=== PATIENT | female | born 1995 | race African-American/Black ===

== ENCOUNTER 2018-03-20 10:41 | Inpatient (IN) ==
[2018-03-20 11:50] LABS: Basophils % 0.2 % (0.0-0.8); Eosinophils % 0.4 % (0.00-10.9); Hematocrit 32.2 VOL% (35.7-47.0); Hemoglobin 10.2 GM/DL (12.0-16.0); Immature Granulocytes % 1.2 %; Immature Granulocytes Absolute 0.13 #; Lymphocytes # 1.7 10*3/uL (1.4-4.0); Lymphocytes % 14.9 % (21.3-54.2); Mean Corpuscular HGB Conc 31.7 GM/DL (32-36); Mean Corpuscular Hemoglobin 25 PG (27-34); Mean Corpuscular Volume 79.3 FL (87-102); Mean Platelet Volume 13.2 FL (9.6-12.0); Monocytes # 0.8 10*3/uL (0.11-0.8); Monocytes % 7.1 % (1.7-12.7); Neutrophils # 8.6 10*3/uL (1.4-7.4); Neutrophils % 76.2 % (38.7-73.9); Platelet Count 193 T/CUMM (130-400); Red Blood Count 4.06 MC/CUMM (3.8-5.5); Red Cell Distribution Width 16.9 % (9.3-17.3); White Blood Count 11.2 T/CUMM (4-12)
[2018-03-20 12:24] LABS: Albumin 2.4 G/DL (3.4-5.0); Bilirubin,Total 0.5 MG/DL (0.2-1.0); Calcium 8.9 MG/DL (8.5-10.1); Osmolality,Calculated 272.5 MOS/KG (273-304); Potassium 3.7 MMOL/L (3.5-5.1); Total Protein 7.1 G/DL (6.4-8.3); Uric Acid 3.1 MG/DL (2.6-6.0)
[2018-03-20 12:37] LABS: Apearance,Urine CLOUDY (Clear); Bacteria,Urine Occasional /HPF (Few); Bilirubin,Urine Negative (Negative); Blood, Urine Large mg/dL (Negative); Glucose,Urine (UA) Negative (Negative); Ketones,Urine Negative (Negative); Nitrite,Urine Negative (Negative); Protein,Urine Negative; RBC,Urine 9 /HPF (0-4); Squamous Epithelial Cell,Urine Few /HPF (0-10); Urine Color Yellow (Yellow); Urine Specific Gravity 1.008 (1.001-1.035); Urine Urobilinogen < 2.0 EU/DL (0.2-1.0); WBC,Urine 111 /HPF (0-6)
[2018-03-20] MEDS ORDERED: ONDANSETRON 4 MG/2 ML VIAL IV PRN ×3 (12:43→21:25)
[2018-03-20] MEDS ORDERED: OXYTOCIN/LR 20 UNIT/1,000 ML BAG IV SCH (13:00)
[2018-03-20] MEDS ORDERED: PROMETHAZINE 25 MG/1 ML VIAL IM ONE (13:04)
[2018-03-20] MEDS ORDERED: diphenhydrAMINE 50 MG/1 ML VIAL IV PRN ×3 (13:04→20:49)
[2018-03-20] MEDS ORDERED: ONDANSETRON 4 MG/2 ML VIAL IV ONE (13:04)
[2018-03-20] MEDS ORDERED: ePHEDrine 50 MG/ML AMP IV PRN (13:04)
[2018-03-20] MEDS ORDERED: FAMOTIDINE 20 MG/2 ML VIAL IV ONE (13:04)
[2018-03-20] MEDS ORDERED: CITRIC ACID/SODIUM CITRATE 30 ML UDCUP PO ONE (13:04)
[2018-03-20] MEDS ORDERED: hydrOXYzine HCL 25 MG/1 ML VIAL IM PRN (13:04)
[2018-03-20] MEDS ORDERED: LACTATED RINGERS 250 ML IV PRN (13:04)
[2018-03-20 13:19] LABS: INR 0.9; PT Patient Result 9.8 SECS; Partial Thromboplastin Time 30.3 SECS (0-40)
[2018-03-20] MEDS ORDERED: fentaNYL 2 MCG/ROPIV 0.2% EPID 150 ML EPIDURAL SCH (13:30)
[2018-03-20] MEDS: LACTATED RINGERS 1,000 ML IV SCH ×2 (14:02→14:55)
[2018-03-20] MEDS ORDERED: MAGNESIUM SULF RIDER 4 GM in PREMIX 1 EACH IV ONE (18:34)
[2018-03-20] MEDS: MAGNESIUM SULF DRIP 40 GM/1,000 ML ML IV SCH (19:20)
[2018-03-20] MEDS ORDERED: ceFAZolin 2,000 MG in PREMIX 1 EACH IV ONE (20:24)
[2018-03-20] MEDS ORDERED: HYDROmorphone 2 MG/1 ML VIAL IV PRN (20:49)
[2018-03-20] MEDS ORDERED: SODIUM CHLORIDE 0.9% 1,000 ML IV SCH (21:00)
[2018-03-20] MEDS ORDERED: LACTATED RINGERS 1,000 ML IV SCH ×2 (21:00→21:30)
[2018-03-20] MEDS ORDERED: SIMETHICONE CHEW 80 MG TABLET PO PRN (21:25)
[2018-03-20] MEDS ORDERED: MAGNESIUM HYDROXIDE SUSP 30 ML UDCUP PO PRN (21:25)
[2018-03-20] MEDS ORDERED: IBUPROFEN 800 MG TABLET PO PRN (21:25)
[2018-03-20] MEDS ORDERED: RHO(D) IMMUNE GLOBULIN 300 MCG SYRINGE IM ONE (21:25)
[2018-03-20] MEDS ORDERED: ACETAMINOPHEN 325 MG TABLET PO PRN (21:25)
[2018-03-20] MEDS ORDERED: OXYTOCIN/LR 20 UNIT/1,000 ML BAG IV ONE (21:25)
[2018-03-20] MEDS ORDERED: MORPHINE 10 MG/10 ML VIAL ONE (21:41)
[2018-03-20] MEDS ORDERED: fentaNYL 100 MCG/2 ML VIAL ONE (21:41)
[2018-03-20] MEDS ORDERED: LIDOCAINE MPF 2% /EPI 20 ML VIAL ONE (21:46)
[2018-03-20] MEDS ORDERED: LACTATED RINGERS 1,000 ML IV ONE (21:46)
[2018-03-20] MEDS ORDERED: SODIUM BICARBONATE 2.4 MEQ/5 ML VIAL ONE (21:46)
[2018-03-20] MEDS ORDERED: ONDANSETRON 4 MG/2 ML VIAL ONE (21:46)
[2018-03-20] MEDS ORDERED: PHENYLEPHRINE 1 MG/10 ML SYRINGE IV ONE (21:46)
[2018-03-21] MEDS: LACTATED RINGERS 1,000 ML IV SCH (06:29)
[2018-03-21] MEDS: DOCUSATE SODIUM 100 MG CAPSULE PO SCH ×2 (09:52→21:44)
[2018-03-21] MEDS: MULTIVITAMIN (PRENATAL) TABLET PO SCH (09:52)
[2018-03-21] MEDS: MAGNESIUM SULF DRIP 40 GM/1,000 ML ML IV SCH (12:01)
[2018-03-21] MEDS ORDERED: ceFAZolin 1,000 MG in SYRINGE 1 EACH IV ONE (15:30)
[2018-03-21] MEDS ORDERED: FAMOTIDINE 20 MG/2 ML VIAL IV PRN (16:39)
[2018-03-21] MEDS: LABETALOL 100 MG TABLET PO SCH ×2 (17:18→21:32)
[2018-03-22 06:50] LABS: Basophils % 0.1 % (0.0-0.8); Eosinophils % 0.1 % (0.00-10.9); Hematocrit 32.3 VOL% (35.7-47.0); Immature Granulocytes % 2.5 %; Immature Granulocytes Absolute 0.62 #; Lymphocytes # 1.9 10*3/uL (1.4-4.0); Lymphocytes % 7.5 % (21.3-54.2); Mean Corpuscular Hemoglobin 25 PG (27-34); Monocytes # 1.4 10*3/uL (0.11-0.8); Monocytes % 5.6 % (1.7-12.7); Neutrophils # 21.2 10*3/uL (1.4-7.4); Neutrophils % 84.2 % (38.7-73.9); Platelet Count 206 T/CUMM (130-400); Red Blood Count 3.94 MC/CUMM (3.8-5.5); Red Cell Distribution Width 17.1 % (9.3-17.3); White Blood Count 25.2 T/CUMM (4-12)
[2018-03-22 07:11] LABS: Anisocytosis 1+; Band Neutrophils 28 % (0-10); Lymphocytes 5 % (20-55); Platelet Estimate Normal; Segmented Neutrophils 63 % (50-85); Total Cells Counted 100
[2018-03-22 07:12] LABS: Poikilocytosis Slight
[2018-03-22] MEDS: DOCUSATE SODIUM 100 MG CAPSULE PO SCH ×2 (08:07→21:46)
[2018-03-22] MEDS: MULTIVITAMIN (PRENATAL) TABLET PO SCH (08:07)
[2018-03-22] MEDS: ALUMINUM/MAGNES/SIMETH MAX STR 30 ML UDCUP PO PRN ×2 (08:07→19:53)
[2018-03-22] MEDS: LABETALOL 100 MG TABLET PO SCH ×2 (08:07→21:46)
[2018-03-23] MEDS: DOCUSATE SODIUM 100 MG CAPSULE PO SCH (08:51)
[2018-03-23] MEDS: LABETALOL 100 MG TABLET PO SCH (08:52)
[2018-03-23] MEDS: MULTIVITAMIN (PRENATAL) TABLET PO SCH (08:52)
[2018-03-23] MEDS ORDERED: BISACODYL 10 MG SUPP RECTAL PRN (09:06)
[2018-03-23 12:33] VITALS: BP 142/70
[2018-03-23] MEDS ORDERED: DIPH/TET/ACEL PERT BOOSTER VACCINE 0.5 ML VIAL IM ONE (15:01)
== END 2018-03-23 15:50 | disposition home or self-care (01) | DRG 540 ==
LOC: N.LDOUT 10:41 → N.LD 10:44 → N.OB 03-21 21:00
PROVIDERS: ADMIT Obstetrics & Gynecology; ATTEND Obstetrics & Gynecology
PROC: LDCSECT (ICD-10-PCS; 2018-03-20 20:05)